=== PATIENT | female | born 1945 | race Hispanic/Latino ===

== ENCOUNTER → 2019-06-20 | Outpatient (CLI) | payer OTHER ==
[~2019-06-20] MED LIST: ASPI-1012 PO; CILO50TA PO; CLOP75TA32 PO; ERGO50CA PO; HYDR-4457 PO; LOSA50TA64 PO; MACR100 PO; ROSU10TA28 PO; SILD20TA14 PO
== END | disposition home or self-care (01) ==
LOC: SHCH 13:53
PROVIDERS: ATTEND Internal Medicine Cardiovascular Disease
DX: I27.0 Primary pulmonary hypertension (principal)
CPT/HCPCS: 93306

== ENCOUNTER 2019-11-23 07:02 | Day surgery (SDC) | payer OTHER ==
[2019-11-21 14:05] LABS: BASOPHILS % (AUTO) 0.4 % (0.0-5.0); EOSINOPHILS % (AUTO) 2.9 % (0.0-8.0); HEMATOCRIT 39.8 % (36-48); LYMPHOCYTES % (AUTO) 28.5 % (21.0-51.0); MEAN CORPUSCULAR HEMOGLOBIN 29.8 pg (27.0-33.0); MEAN CORPUSCULAR HGB CONC 32.7 g/dL (32.0-36.0); MEAN CORPUSCULAR VOLUME 91.3 fL (79-99); MONOCYTES % (AUTO) 5.1 % (3.0-13.0); PLATELET COUNT (AUTO) 197 K/uL (130-400); RED BLOOD CELL COUNT(AUTO) 4.36 MIL/uL (4.00-5.50); RED CELL DISTRIBUTION WIDTH 13.2 % (11.0-15.5); WHITE BLOOD COUNT (AUTO) 7.6 K/uL (4.8-10.8)
[2019-11-21 14:15] LABS: CREATININE 0.7 mg/dL (0.5-1.5); POTASSIUM 3.6 mmol/L (3.5-5.1)
[2019-11-21 14:21] VITALS: BP 191/95
[2019-11-21 14:23] LABS: INR 0.92 (0.85-1.15); PARTIAL THROMBOPLASTIN TIME 26.9 SEC (26.3-35.5)
[2019-11-21 14:29] LABS: BILIRUBIN,URINE Negative (NEGATIVE); COLOR,URINE Dark Yellow (YELLOW); GLUCOSE, URINE (UA) Negative (NEGATIVE); KETONES,URINE Trace mg/dL (NEGATIVE); LEUKOCYTE ESTERASE ,URINE Negative (NEGATIVE); NITRATE,URINE Positive (NEGATIVE); OCCULT BLOOD,URINE Trace (NEGATIVE); PH,URINE 5.5 (5.0-8.0); PROTEIN,URINE Negative (NEGATIVE)
[2019-11-21 14:34] LABS: APPEARANCE,URINE CLOUDY (CLEAR)
[2019-11-21 14:36] LABS: BACTERIA,URINE Few /HPF (None Seen); MUCUS,URINE Few LPF (None Seen); SQUAMOUS EPITHELIAL CELL,UR Few /HPF (0-2); WBC,URINE 0-1 /HPF (0-1)
--- NOTE | 2019-11-22 15:44 | NUR ---
labs/ xray abnormal ua, chest xray reported to Melody CARTER , no further orders given,
[~2019-11-23] VITALS: Ht 167.6 cm; Wt 83.7 kg
[2019-11-23] VITALS (10 sets, daily range): BP systolic 142–171; BP diastolic 65–80
[~2019-11-23 07:02] MED LIST changes: -ASPI-1012 PO; +ASPI-556 PO; +CILO100T PO; -CILO50TA PO; -ERGO50CA PO; -HYDR-4457 PO; +LEVO5TAB13 PO; -MACR100 PO; +NINT100C PO; +VITAD50000 PO
[2019-11-23] MEDS ORDERED: SODIUM CHLORIDE 0.9% 1000ML 1,000 ML IV ONE (07:11)
[2019-11-23] MEDS ORDERED: AMLO-257 PO (07:38)
[2019-11-23] MEDS ORDERED: IOHEXOL-350 50ML VIAL IV ONE (11:07)
[2019-11-23] MEDS ORDERED: NITROGLYCERIN 2 MG/VIAL VIAL IV ONE (11:07)
[2019-11-23] MEDS ORDERED: BIVALIRUDIN 250 MG/VIAL IV ONE (11:07)
[2019-11-23] MEDS ORDERED: HEPARIN SODIUM 1000UNIT/ML 10ML VIAL ONE (11:07)
[2019-11-23] MEDS ORDERED: MIDAZOLAM HCL 1 MG/ML 2ML VIAL ONE (11:08)
[2019-11-23] MEDS ORDERED: IOHEXOL 350 MG/ML 100ML INFUS..BTL IV ONE (11:08)
[2019-11-23] MEDS ORDERED: LIDOCAINE HCL 2% 20ML ONE (11:10)
[2019-11-23] MEDS ORDERED: LABETALOL HCL 5 MG/ML 20ML VIAL IV ONE (12:04)
[2019-11-23] MEDS ORDERED: SODIUM CHLORIDE 0.9% 1000ML 1,000 ML IV SCH (12:49)
--- NOTE | 2019-11-23 14:00 | NUR ---
SPOKE TO PT'S SISTER KLEVER. DISCHARGE INSTRUCTIONS GIVEN TO KLEVER VIA PHONE. VERBALIZED UNDERSTANDING. SHE IS STAYING WITH PT AT HOME AND WILL DRIVE HER HOME ON DISCHARGE.
--- NOTE | 2019-11-23 16:15 | NUR ---
DISCHARGED PT DISCHARGED VIA WHEELCHAIR WITH SISTER. PT STABLE. NO COMPLAINTS MADE. NOT IN ANY APPARENT DISTRESS, NO RESPIRATORY DISTRESS NOTED. CATH SITE TO RIGHT GROIN REMAINS SOFT, NO FURTHER OOZING NO ACTIVE BLEEDING OR HEMATOMA NOTED. DISCHARGE INSTRUCTIONS REVIEWED WITH SISTER, VERBALIZED UNDERSTANDING. PT VOIDED PRIOR TO DISCHARGE. PRESCRIPTION GIVEN TO SISTER.
== END 2019-11-23 16:15 | disposition home or self-care (01) ==
LOC: DAH 07:02
PROVIDERS: ATTEND Internal Medicine Cardiovascular Disease
DX: J84.112 Idiopathic pulmonary fibrosis (principal); I25.10 Atherosclerotic heart disease of native coronary artery without angina pectoris; I10 Essential (primary) hypertension; E78.5 Hyperlipidemia, unspecified; I65.8 Occlusion and stenosis of other precerebral arteries; M17.11 Unilateral primary osteoarthritis, right knee; Z87.891 Personal history of nicotine dependence; Z98.890 Other specified postprocedural states; I73.00 Raynaud's syndrome without gangrene; E78.00 Pure hypercholesterolemia, unspecified; M19.90 Unspecified osteoarthritis, unspecified site; Z96.651 Presence of right artificial knee joint; Z90.49 Acquired absence of other specified parts of digestive tract; Z79.899 Other long term (current) drug therapy
CPT/HCPCS: 36415; 71045; 80048; 81001; 85025; 85610; 85730; 93005; 93460; A4215; A4216; A4221; A4222; A4223 ×3; A4606; A4663; C1760; C1769; C1894 ×2; J2250; J3490 ×3; J7030; Q9965 ×2; Q9967 ×2; 99156; 99157; J0583; J1644

== ENCOUNTER → 2020-12-08 | Outpatient (CLI) | payer OTHER ==
[~2020-12-08] MED LIST changes: +AMLO-257 PO; -LOSA50TA64 PO
== END | disposition home or self-care (01) ==
LOC: SHCH 14:24
PROVIDERS: ATTEND Internal Medicine Cardiovascular Disease
DX: Z09 Encounter for follow-up examination after completed treatment for conditions other than malignant neoplasm (principal); I87.2 Venous insufficiency (chronic) (peripheral)
CPT/HCPCS: 93971

== ENCOUNTER → 2020-12-15 | Outpatient (CLI) | payer OTHER | END | disposition home or self-care (01) | LOC: SHCH 09:09 | PROVIDERS: ATTEND Internal Medicine Cardiovascular Disease | DX: Z09 Encounter for follow-up examination after completed treatment for conditions other than malignant neoplasm (principal); I87.2 Venous insufficiency (chronic) (peripheral) | CPT/HCPCS: 93971 ==

== ENCOUNTER → 2023-03-14 | Outpatient (CLI) | payer OTHER ==
[~2023-03-14] MED LIST changes: -CILO100T PO; +CILO100T3 PO
== END | disposition home or self-care (01) ==
LOC: RAH 14:28
PROVIDERS: ATTEND Internal Medicine Critical Care Medicine
DX: I82.409 Acute embolism and thrombosis of unspecified deep veins of unspecified lower extremity (principal); R60.0 Localized edema; R06.09 Other forms of dyspnea; I25.10 Atherosclerotic heart disease of native coronary artery without angina pectoris; I27.20 Pulmonary hypertension, unspecified
CPT/HCPCS: 93970

== ENCOUNTER → 2024-06-12 | Outpatient (CLI) | payer OTHER ==
[~2024-06-12] MED LIST changes: -ROSU10TA28 PO; +ROSU10TA72 PO
== END | disposition home or self-care (01) ==
LOC: SHCH 11:11
PROVIDERS: ATTEND Internal Medicine Cardiovascular Disease
DX: I27.20 Pulmonary hypertension, unspecified (principal); J84.10 Pulmonary fibrosis, unspecified; I25.119 Atherosclerotic heart disease of native coronary artery with unspecified angina pectoris
CPT/HCPCS: 93306

== ENCOUNTER → 2024-06-13 | Outpatient (CLI) | payer OTHER ==
[2024-06-13 12:37] LABS: CHOLESTEROL 137 mg/dL (<200); HDL CHOLESTEROL 44 mg/dL (35-85); LDL DIRECT 76 mg/dL (0-99); TRIGLYCERIDES 146 mg/dL (30-200)
== END | disposition home or self-care (01) ==
LOC: LAB 09:15
PROVIDERS: ATTEND Internal Medicine Cardiovascular Disease
DX: E78.5 Hyperlipidemia, unspecified (principal)
CPT/HCPCS: 36415; 80061